=== PATIENT | male | born 1955 | race African-American/Black ===

== ENCOUNTER → 2016-06-09 | Day surgery (SDC) | payer BC ==
--- NOTE | 2016-06-06 19:28 | Pre-op HX & Phy Repo 2 SIG ---
DATE OF ADMISSION: 06/09/2016 PREOPERATIVE DIAGNOSIS: Extensive macular puckering and neovascularization, right eye associated with branch retinal vein occlusion. BRIEF NOTE: This is the first [facility] admission for this patient who is a very nice 61-year-old gentleman who complained of distortion and loss of vision in the right eye for several weeks. On examination by his referring physician, he was noted to have a significant branch retinal vein occlusion. His past ocular history is essentially negative according to the patient. He has never had ocular surgery in the past. PAST MEDICAL HISTORY: Remarkable for heart disease, hypertension, and borderline diabetes. SOCIAL HISTORY: He does not smoke or drink. CURRENT MEDICATIONS: Atenolol 50 mg daily. ALLERGIC: To penicillin. PHYSICAL EXAMINATION: Best vision at the time of admission was 22/100 in the right eye and 20/40 in the left with pressures of 18. The anterior segment showed mild to moderate nuclear sclerosis on either side. Funduscopic examination showed a cup of 0.45 in either eye. There was a large area of neovascularization overlying the optic nerve and extending over the macula where there is a very dense epiretinal membrane. The left fundus showed normal appearing vessels. Fluorescein angiography and old CT studies demonstrated a widespread hemiretinal vein occlusion. Mainly inferiorly and nasally. In addition, there was extensive neovascularization and preretinal fibrosis. The left was benign. ASSESSMENT: Widespread neovascularization and epiretinal membrane, right eye. PLAN: The plan is to perform a pars plana vitrectomy with membrane dissection, endolaser, and Avastin injection on the right. The risks and benefits of surgery gone over with the patient with potential infection, hemorrhage, retinal detachment, worsening of the cataract, and the remote possibility of loss of the eye. The risk of anesthesia was discussed. The patient understands and consents to the surgery, which will be performed on Thursday. Edu Masterson M.D. DR: TRIP JOB#: [id number] CC:
[~2016-06-09] VITALS: Ht 182.9 cm; Wt 113.4 kg
[2016-06-09] VITALS (9 sets, daily range): BP systolic 86–136; BP diastolic 2–86
[~2016-06-09] MED LIST: AMLODIPINE BESYL5 MG ORAL; Avastin 10mg Inj IVITRE ONE; BSS 15ml BTL ONE; BSS 500ml btl ONE; Bupivacaine 0.75% 30ml vial INJ ONE; Cyclopentolate 1% Opth Sol ONE; DILTIAZEM ER120 M2 PO; DOXAZOSIN MESYLA4 MG ORAL; Dexamethasone 4mg/ml vial ONE; EPINEPHrine 1mg/1ml Amp ONE; Flurbiprofen 0.03% Opth Sol 2.5ml ONE; Gatifloxacin Opth Solution 0.5% ONE; HYDROCHLOROTHIA25 MG ORAL; Indocyanine Green 25mg Inj INJ ONE; Kenalog-10 5ml Inj ONE; LR 1000ml 1,000 ML IV SCH; LR 1000ml 1,000 ML IVLG SCH; LR 1000ml ONE; Lidocaine 2% MPF 5ml Vial INJ ONE; METFORMIN HCL500 M1 ORAL; Maxitrol Opth Oint 3.5gm ONE; Midazolam 2mg/2ml Inj ONE; NS Irrig 1000ml ONE; Norco 5mg/325mg tab ORAL PRN; Phenylephrine 2.5% Op Soln ONE; Povidone-Iodine 5% opth solution ONE; Pred Forte 1% Opth Susp 1ml RIGHT EYE ONE; Promethazine/Codeine 5ml UD ORAL ONE; Propofol 10mg/ml 20ml IV ONE; Sodium Hyaluronate 10 mg/ml 0.85ml ONE; Sterile Water Irrig 1000ml IRRIG ONE; Tetracaine 0.5% Opth Soln ONE; fentaNYL 100 mcg/2 mL IV PRN
--- NOTE | 2016-06-09 06:06 | Pre-Procedure Note/Attestation ---
Pre-Procedure Note/Attestation Complete Prior to Procedure Planned Procedure: right Procedure Narrative: PPV, membrane peel, Kenalog injection, endolaser, Avastin injection R eye Indications for Procedure Pre-Operative Diagnosis: BRVO with edema, neovascularization, and traction R eye Attestation I attest that I discussed the nature of the procedure; its benefits; risks and complications; and alternatives (and the risks and benefits of such alternatives ), prior to the procedure, with the patient (or the patient's legal lead generation representative). I attest that, if there was a reasonable possibility of needing a blood transfusion, the patient (or the patient's legal lead generation representative) was given the [place] [employer] standardized written summary, pursuant to the [place] Blood Safety Act ([place] Health and Safety Code # 1645, as amended). I attest that I re-evaluated the patient just prior to the surgery and that there has been no change in the patient's H&P, except as documented below: DESIREE WOODALL Jun 09, 2016 06:06
[2016-06-09] MEDS: Cyclopentolate 1% Opth Sol RIGHT EYE SCH ×3 (06:42→07:11)
[2016-06-09] MEDS: Phenylephrine 2.5% Op Soln RIGHT EYE SCH ×3 (06:42→07:11)
[2016-06-09] MEDS: Flurbiprofen 0.03% Opth Sol 2.5ml RIGHT EYE SCH ×3 (06:42→07:11)
[2016-06-09] MEDS: Gatifloxacin Opth Solution 0.5% RIGHT EYE SCH ×3 (06:43→07:11)
[2016-06-09 07:09] LABS: BASOPHILS % (AUTO) 1.4 % (0.0-2.0); EOSINOPHILS % (AUTO) 1.6 % (0.0-3.0); LYMPHOCYTES % (AUTO) 28.8 % (20.0-45.0); MEAN CORPUSCULAR HEMOGLOBIN 32.8 PG (27.0-31.0); MEAN CORPUSCULAR HGB CONC 34.7 G/DL (32.0-36.0); MEAN CORPUSCULAR VOLUME 95 FL (80-99); MEAN PLATELET VOLUME 7.3 FL (6.5-10.1); MONOCYTES % (AUTO) 13.7 % (1.0-10.0); NEUTROPHILS % (AUTO) 54.5 % (45.0-75.0); PLATELET COUNT 232 K/UL (150-450); RED BLOOD COUNT 4.66 M/UL (4.70-6.10); RED CELL DISTRIBUTION WIDTH 11.4 % (11.6-14.8); WHITE BLOOD COUNT 6.2 K/UL (4.8-10.8)
[2016-06-09 07:18] LABS: ANION GAP 16 (5-15); CALCIUM 9.3 mg/dL (8.6-10.2); CARBON DIOXIDE 24 mEQ/L (20-30); CHLORIDE 97 mEQ/L (98-107); CREATININE 1.3 mg/dL (0.7-1.2); GLOMERULAR FILTRATION RATE > 60 mL/min (>60); HEMOLYSIS 45; POTASSIUM 4.3 mEQ/L (3.4-4.9); SODIUM 137 mEQ/L (135-145)
--- NOTE | 2016-06-09 08:49 | Anethesia Preoperative Eval ---
Anesthesia Pre-op PMH/ROS General Date of Evaluation: Jun 09, 2016 Time of Evaluation: 08:21 Anesthesiologist: Margarette ASA Score: ASA 3 Mallampati Score Class I : Soft palate, uvula, fauces, pillars visible Class II: Soft palate, uvula, fauces visible Class III: Soft palate, base of uvula visible Class IV: Only hard plate visible Mallampati Classification: Class III Surgeon: Aleja Diagnosis: Vitreous hemorrhage right eye Surgical Procedure: Vitrectomy, membrane peel Family History: no anesthesia problems Allergies: Coded Allergies: PENICILLINS (Verified Allergy, Unknown, 06/05/16) Past Medical History Cardiovascular: Reports: HTN Pulmonary: Denies: COPD, AUBREY, asthma, other Gastrointestinal/Genitourinary: Denies: CRI, ESRD, GERD, other Neurologic/Psychiatric: Denies: CVA, TIA, dementia, depression/anxiety, other Endocrine: Reports: DM HEENT: Denies: LOVELOCK (L), LOVELOCK (R), cataract (L), cataract (R), glaucoma, other Hematology/Immune: Denies: DVT, anemia, bleeding disorder, other Musculoskeletal/Integumentary: Denies: DDD, DJD, OA, RA, edema, other PMH Narrative: DM, HTN PSxH Narrative: No prior surgery Anesthesia Pre-op Phys. Exam Physician Exam Last Vital Signs Date Time Temp Pulse Resp B/P Pulse Ox O2 Delivery O2 Flow Rate FiO2 06/09/16 07:02 99.1 93 20 136/86 95 Room Air Constitutional: NAD Neurologic: CN 2-12 intact Cardiovascular: RRR, no M/R/G Respiratory: CTA Gastrointestinal: S/NT/ND Airway Exam Mallampati Score: Class III MO: full ROM: full Teeth: intact Anesthesia Pre-op A/P Labs Hematology Test 06/09/16 06:35 White Blood Count 6.2 K/UL (4.8-10.8) Red Blood Count 4.66 M/UL (4.70-6.10) L Hemoglobin 15.3 G/DL (14.2-18.0) Hematocrit 44.1 % (42.0-52.0) Mean Corpuscular Volume 95 FL (80-99) Mean Corpuscular Hemoglobin 32.8 PG (27.0-31.0) H Mean Corpuscular Hemoglobin Concent 34.7 G/DL (32.0-36.0) Red Cell Distribution Width 11.4 % (11.6-14.8) L Platelet Count 232 K/UL (150-450) Mean Platelet Volume 7.3 FL (6.5-10.1) Neutrophils (%) (Auto) 54.5 % (45.0-75.0) Lymphocytes (%) (Auto) 28.8 % (20.0-45.0) Monocytes (%) (Auto) 13.7 % (1.0-10.0) H Eosinophils (%) (Auto) 1.6 % (0.0-3.0) Basophils (%) (Auto) 1.4 % (0.0-2.0) Chemistry Test 06/09/16 06:35 Sodium Level 137 mEQ/L (135-145) Potassium Level 4.3 mEQ/L (3.4-4.9) Chloride Level 97 mEQ/L (98-107) L Carbon Dioxide Level 24 mEQ/L (20-30) Anion Gap 16 (5-15) H Blood Urea Nitrogen 12 mg/dL (7-23) Creatinine 1.3 mg/dL (0.7-1.2) H Estimat Glomerular Filtration Rate > 60 mL/min (>60) Glucose Level 299 mg/dL (74-106) H Calcium Level 9.3 mg/dL (8.6-10.2) Studies Pre-op Studies: EKG - SR Risk Assessment & Plan Assessment: Vitreous hemorrhage Plan: MAC, NC O2 Status Change Before Surgery: No Pre-Antibiotics Drug: None DESTINY JIMENEZ M.D. Jun 09, 2016 08:49
--- NOTE | 2016-06-09 08:50 | Immediate Post-Op Evaluation ---
Immediate Post-Op Evalulation Immediate Post-Op Evalulation Procedure: Vitrectomy, membrane peel right eye Date of Evaluation: Jun 09, 2016 Time of Evaluation: 09:54 IV Fluids: 475 Blood Pressure Systolic: 119 Blood Pressure Diastolic: 75 Pulse Rate: 88 Respiratory Rate: 18 O2 Sat by Pulse Oximetry: 97 Temperature (Fahrenheit): 97.9 Pain Score (1-10): 0 Nausea: No Vomiting: No Complications No complication Patient Status: awake, patent, none Hydration Status: adequate Drug: None DESTINY JIMENEZ M.D. Jun 09, 2016 08:50
--- NOTE | 2016-06-09 09:49 | 48 Hour Post Anesthesia Eval ---
Post Anesthesia Evaluation Procedure: Vitrectomy, membrane peel right eye Date of Evaluation: Jun 09, 2016 Time of Evaluation: 10:25 Blood Pressure Systolic: 107 0: 70 Pulse Rate: 80 Respiratory Rate: 18 O2 Sat by Pulse Oximetry: 97 Airway: patent Nausea: No Vomiting: No Pain Intensity: 0 Hydration Status: adequate Cardiopulmonary Status: Stable Mental Status/LOC: patient returned to baseline Follow-up Care/Observations: As per surgery Post-Anesthesia Complications: No anesthetic complication Follow-up care needed: N/A DESTINY JIMENEZ M.D. Jun 09, 2016 09:49
--- NOTE | 2016-06-09 09:54 | Brief Operative Note ---
Immediate Post Operative Note Operative Note Chief Complaint: Blurred and distorted vision R eye Pre-op Diagnosis: BRVO with edema, neovascularization, and traction R eye Procedure: PPV, membrane peel with ICG and Kenalog, Endolaser 975 spots, Gas-Fluid exchange (20% SF-6 90% fill) Avastin injection 1.25 mg Right eye Post-op Diagnosis: BRVO with neovascularization and vitreous heme, posterior traction, and Stage III, possible Stage IV macular hole R eye Post-op Diagnosis: same as pre-op plus - Suspected stage IV hole made necessity of SF-6 gas to facilitate closure and diminish need for additional surgery Surgeon: Aleja Anesthesiologist: Dez Specimen: none Complications: none Condition: stable Estimated Blood Loss: none Drains: none Implant(s) used?: No - SF-6 gas given due to discovery of possible Stage 4 hole DESIREE WOODALL Jun 09, 2016 09:54
--- NOTE | 2016-06-09 19:22 | Operative Note - Dictated ---
DATE OF OPERATION: 06/09/2016 PREOPERATIVE DIAGNOSIS: Extensive branch retinal vein occlusion right eye with neovascularization, hemorrhage, traction, and possible stage IV macular hole. POSTOPERATIVE DIAGNOSIS: Extensive branch retinal vein occlusion right eye with neovascularization, hemorrhage, traction, and possible stage IV macular hole. PROCEDURES: 1. Pars plana vitrectomy. 2. ICG and Kenalog assisted membrane peel. 3. Endolaser. 4. Gas fluid exchange. 5. Avastin injection Right eye. SURGEON: Edu Masterson M.D. ELECTRIC RANGE SERVICER: None. ANESTHESIOLOGIST: Dr. Garces. JUSTIFICATION FOR SURGERY: This 61-year-old gentleman noted problems with the vision, spanning two months, more recently with distortion clouds. BRIEF NOTE: The patient was brought to the operative room, placed on OR table in supine position. After a time-out was performed and agreed upon by the staff, an initial monitoring secured by Dr. Garces. A retrobulbar and Van Lint blocks given the standard way. When the blocks taken effect, he was prepped and draped in normal manner. A lid speculum inserted into the right eye. Using a 23-gauge trocar system cannulas were placed all except infranasal quadrant. Bleeding secured inferotemporally. Vitrectomy was begun posterior to the lens taking care to avoid contact. A central core vitrectomy was done followed by peripheral vitrectomy leaving a small vitreous skirt. Areas of traction were noted overlying the optic nerve and along the four major arcades. These areas were dissected down, flush with the retina. A posterior viewing lens was inserted and forceps were used to elevate the traction off the optic nerve and to find tissue plane so that complete dissection could be done. A large area of preretinal fibrosis overlying the macula was removed, but it was felt that there was a possibility of a stage III or IV macular hole. For this reason, it was elected to remove the ILM. Posterior staining was done with ICG dye. After which the forceps were used to remove the internal limiting lamina in an area roughly 3 disc diameters in size in compensating the macula and posterior pole. This went without difficulty. A Rubin cane weigher was used to search for additional membranes and to normalize the position of the macula. Because of the suspicion of the macular hole, it was elected to proceed with SF6 gas injection. A 20% SF6 was chosen. After an initial air-fluid exchange, a gas exchange was performed yielding a 90% fill. Prior to instillation of the gas, the Endolaser had been used to treat broad area of non-perfuse retina mainly nasally and inferiorly. A total of 975 spots were used without complication. Scleral depression was performed and no peripheral breaks, tears, or detachments were seen. Cannulas were then removed and the wound was noted to be self-sealing. Through the infusion line Avastin 1.25 mg was injected. This cannula was also removed with all wounds noted be self-sealing. Subconjunctival Decadron and gentamicin were then injected inferiorly and Maxitrol and atropine ointments were instilled. The eye was patched and shielded and the patient was taken to recovery in excellent condition. Please note that due to an intraoperative finding since suspect stage IV hole, it was elected to proceed with a gas fluid exchange in order to diminish the need for subsequent additional surgery. Edu Masterson M.D. DR: CITLALY JOB#: [id number] CC: Edu Masterson M.D.; Fax#: [phone] [facility]
--- NOTE | 2016-06-10 11:25 | Cardiology Report ---
APPROVED REPORT EKG Measurement Heart [id number] Normal sinus rhythm Right bundle branch block Moderate voltage criteria for LVH, may be normal variant ST elevation, consider early repolarization, pericarditis, or injury Abnormal ECG
--- NOTE | 2016-06-11 13:28 | Pre-op HX & Phy Repo 2 SIG ---
DATE OF ADMISSION: 06/09/2016 NOTE: "POOR AUDIO QUALITY" PRESURGICAL INTERNAL MEDICINE HISTORY AND PHYSICAL: REASON FOR EVALUATION: I was asked by Edu Masterson M.D., to see this 61-year-old male who is going for elective surgery on the left eye. The patient has proliferative diabetic retinopathy, right eye. Please see Ophthalmology history and physical by Edu Masterson M.D. The patient was evaluated. Chart was reviewed. The patient denies history of chest pain, palpitation, or heart attack. No history of stroke. The patient has history of hypertension and type 2 diabetes mellitus, also recent cold 4 days ago. Denied fever and nonproductive cough. Denies history of GI problem. No GI bleeding. No heartburn. No history of lung problem, emphysema, pneumonia, or TB. Denies history of thyroid problem. No history of renal failure. No anemia. PAST SURGICAL HISTORY: None. FAMILY HISTORY: Mother with hypertension and father diabetes mellitus. ALLERGIES: To penicillin. PRESENT MEDICATIONS: Included amlodipine, Cardizem 120 mg, hydrochlorothiazide, and Cardura 4 mg. HABITS: Denies tobacco use. Occasional alcohol. No street drugs. PHYSICAL EXAMINATION: GENERAL: The patient is alert. VITAL SIGNS: His BMI is 33.3 kg/m2. Blood pressure 136/86, temperature 99.1, pulse 95, O2 saturation 95% on room air. SKIN: Dry, warm, clear. No rashes. LYMPH NODES: Not enlarged. HEENT: Head normocephalic. Ears clear. Eyes, full description per Edu Masterson M.D. Mouth clear. No enlargement. No dentures. Ears clear. No discharge. NECK: Supple. No jugular venous distention. Carotid artery +2. Trachea midline. CHEST: No deformity or asymmetry. HEART: Sinus rhythm. No ectopy. No murmur. No S3 or S4. LUNGS: Clear. No rales or rhonchi. ABDOMEN: Soft, benign. No palpable mass. No rebound. EXTREMITIES: No edema. No varicose vein . GENITOURINARY TRACT: CVA nontender. Denies dysuria. NEUROLOGIC SYSTEM: No tremor. No nystagmus. LABORATORY AND DIAGNOSTIC DATA: ECG, normal sinus rhythm, 85 per minute, right bundle-branch block, left ventricular hypertrophy, ST/T-wave abnormality, early repolarization. Fast blood sugar 276. Last p.o. intake 1700 hours yesterday. Plan, the patient is given regular Humalog 4 units and Phenergan With Codeine 5 mL p.o. Discussed with Dr. Ervin. IMPRESSION: 1. Peripheral diabetic retinopathy, right eye. 2. Hypertension. 3. Type 2 diabetes mellitus, poorly controlled with complications of retinal diabetic degeneration. 4. Recent cold. 5. Obesity. 6. Right bundle-branch block with left ventricular hypertrophy and ST changes. PLAN: Pars plana vitrectomy, 23G endolaser membrane peel, right eye by Edu Masterson M.D. CONCLUSION: The patient has multiple medical problems to include diabetes mellitus, hypertension, EKG changes, recently had cold. The patient is afebrile. Did not eat or drink from last night. The patient's condition optimized for surgery. Malaika Martinez M.D. DR: Sebastián JOB#: [id number] CC:
== END | disposition home or self-care (01) ==
LOC: SUR 06:06
DX: H35.371 Puckering of macula, right eye (principal); E11.3591 Type 2 diabetes mellitus with proliferative diabetic retinopathy without macular edema, right eye; H34.83 Tributary (branch) retinal vein occlusion; E11.65 Type 2 diabetes mellitus with hyperglycemia; H43.821 Vitreomacular adhesion, right eye; I10 Essential (primary) hypertension; I45.10 Unspecified right bundle-branch block; I51.7 Cardiomegaly; E66.9 Obesity, unspecified; Z68.33 Body mass index [BMI] 33.0-33.9, adult; Z88.0 Allergy status to penicillin
CPT/HCPCS: 36415; 67042; 80048; 82962; 85025; 93005; J0171; J1100; J2250; J2704; J3301; J3470; J3490; J7120; J9035; 94003; 94150